=== PATIENT | male | born 2000 | race Two or more races ===

== ENCOUNTER 2020-07-22 09:13 | Outpatient (CLI) | payer OTHER | END 2020-07-22 23:59 | disposition home or self-care (01) | LOC: CFH 09:13 | PROVIDERS: ATTEND Pediatrics | DX: J93.83 Other pneumothorax (principal) | CPT/HCPCS: 71046 ==

== ENCOUNTER → 2020-08-10 | Outpatient (CLI) | payer OTHER | END | disposition home or self-care (01) | LOC: CFH 10:56 | PROVIDERS: ATTEND Pediatrics | DX: J93.9 Pneumothorax, unspecified (principal) | CPT/HCPCS: 71046 ==

== ENCOUNTER → 2020-08-29 | Outpatient (CLI) | payer OTHER | END | disposition home or self-care (01) | LOC: CFH 11:38 | PROVIDERS: ATTEND Pediatrics | DX: J93.9 Pneumothorax, unspecified (principal) | CPT/HCPCS: 71046 ==